=== PATIENT | female | born 1940 | race Caucasian/White ===

== ENCOUNTER → 2017-01-26 | Outpatient (CLI) | payer MEDICARE, OTHER ==
[~2017-01-26] MED LIST: ACIPHEX20 MG PO; ADVAIR IH; CELEXA40 MG PO; COUMADIN5 MG PO; CRESTOR20 MG PO; DEXILANT60 MG PO; GABAPENTIN TAB600 MG PO; GLUCOSAMINE/CHONDROI PO; LOVENOX60 MG/0.6 SC; NATURAL E400 IU PO; NEURONTIN600 MG/TAB PO; NEUROPATHY MED; OMEGA 31000 MG PO; RESTASIS0.05% OU; RT ADVAIR 228 DISKUS IH; RT SPIRIVA18 MCG IH; SALAGEN 5MG TAB5 MG PO; SPIRIVA18 MCG IH; VENTOLIN0.09 MG IH; VITAMIN D 400400 IU PO; VITAMIN E1000 U/CAP PO; XANAX 0.5MG0.5 MG PO; XANAX0.25 MG PO; XANAX0.5 MG PO; ZETIA 10MG TAB10 MG PO
== END ==
LOC: MC.RAD 13:59
DX: Z12.31 Encounter for screening mammogram for malignant neoplasm of breast (principal)

== ENCOUNTER 2017-04-27 15:41 | Inpatient (IN) | payer MEDICARE, OTHER ==
[~2017-04-27] VITALS: Ht 160 cm; Wt 59.0 kg
[2017-05-11 16:58] LABS: HIV 1/2 Antibodies Non-Reactive; HIV-1p24 Antigen Non-Reactive
[2017-05-26] VITALS (11 sets, daily range): BP systolic 109–159; BP diastolic 42–83; PULSE 75–98; TEMP 97.8–98.9
[2017-05-26] MEDS ORDERED: EPA FISH OIL1 SGL PO (01:35)
[2017-05-26] MEDS ORDERED: OSCAL 500 TAB500 MG PO (01:36)
[2017-05-26] MEDS ORDERED: NATURAL E400 IU PO (01:37)
[2017-05-26] MEDS ORDERED: WELLBUTRIN 75MG75 MG PO (01:39)
[2017-05-26] MEDS ORDERED: FLEXERIL 1010 MG/TAB PO (02:03)
[2017-05-26] MEDS ORDERED: DULERA1 AR1 IH (05:29)
[2017-05-27 00:53] VITALS: BP 104/44; PULSE 79; TEMP 97.5
[2017-05-27 04:00] VITALS: BP 115/45; PULSE 80; TEMP 97
[2017-05-27 06:31] LABS: HEMATOCRIT 30.9 % (37.0-47.0); HEMOGLOBIN 9.4 g/dl (12.5-16.0)
[2017-05-27 07:59] VITALS: BP 100/48; PULSE 72; TEMP 97.6
[2017-05-27 12:09] VITALS: BP 115/58; PULSE 83; TEMP 96.8
[2017-05-27 16:00] VITALS: BP 140/83; PULSE 77; TEMP 98
[2017-05-27 20:00] VITALS: BP 101/43; PULSE 81; TEMP 99.2
[2017-05-28 04:00] VITALS: BP 108/47; PULSE 73; TEMP 98.5
[2017-05-28 07:29] LABS: HEMATOCRIT 28.6 % (37.0-47.0); HEMOGLOBIN 8.6 g/dl (12.5-16.0)
[2017-05-28 09:39] VITALS: BP 111/43; PULSE 81; TEMP 99.1
[2017-05-28 14:51] VITALS: BP 111/50; PULSE 86; TEMP 97.9
[2017-05-28 17:25] VITALS: BP 120/73; BP 720/73; PULSE 89; TEMP 100.1; TEMP 98.8
[2017-05-28 20:46] VITALS: BP 126/52; PULSE 86; TEMP 98.7
[2017-05-29 06:28] LABS: HEMATOCRIT 29.3 % (37.0-47.0); HEMOGLOBIN 8.9 g/dl (12.5-16.0)
[2017-05-29 09:52] VITALS: BP 116/48; PULSE 82; TEMP 99.1
[2017-05-29 11:39] VITALS: BP 116/48; PULSE 82; TEMP 99.1
== END 2017-05-29 13:30 | DRG 483 ==
LOC: SURG 05-26 05:06 → JCC 05-26 07:30 → SURG 05-29 13:30
PROVIDERS: Orthopaedic Surgery
PROC: 0RRJ00Z Replacement of Right Shoulder Joint with Reverse Ball and Socket Synthetic Substitute, Open Approach (ICD-10-PCS; principal; 2017-05-26 07:30)
DX: M19.011 Primary osteoarthritis, right shoulder (principal); Z87.891 Personal history of nicotine dependence
CPT/HCPCS: A4315; C1713; C1776; J0690; J1100; J2250; J2704; J2710; J3010; J3370; J7050; J7120

== ENCOUNTER 2017-05-13 10:45 | Outpatient (RCR) | payer MEDICARE, OTHER ==
[2017-05-26] MEDS ORDERED: EPA FISH OIL1 SGL PO (01:35)
[2017-05-26] MEDS ORDERED: OSCAL 500 TAB500 MG PO (01:36)
[2017-05-26] MEDS ORDERED: NATURAL E400 IU PO (01:37)
[2017-05-26] MEDS ORDERED: WELLBUTRIN 75MG75 MG PO (01:39)
[2017-05-26] MEDS ORDERED: FLEXERIL 1010 MG/TAB PO (02:03)
[2017-05-26] MEDS ORDERED: DULERA1 AR1 IH (05:29)
== END 2017-06-07 15:04 | disposition home or self-care (01) ==
LOC: MKS.ESL.PT 10:45
DX: M75.111 Incomplete rotator cuff tear or rupture of right shoulder, not specified as traumatic (principal); M19.011 Primary osteoarthritis, right shoulder; M62.511 Muscle wasting and atrophy, not elsewhere classified, right shoulder
CPT/HCPCS: G0283-GP; G8978-GP; G8979-GP

== ENCOUNTER → 2017-06-03 | Outpatient (CLI) | payer MEDICARE, OTHER ==
[~2017-06-03] MED LIST changes: +DULERA1 AR1 IH; +EPA FISH OIL1 SGL PO; +FLEXERIL 1010 MG/TAB PO; +OSCAL 500 TAB500 MG PO; +WELLBUTRIN 75MG75 MG PO
== END ==
LOC: COL.VAS 13:29
DX: I82.611 Acute embolism and thrombosis of superficial veins of right upper extremity (principal); R60.0 Localized edema; Z96.611 Presence of right artificial shoulder joint

== ENCOUNTER → 2017-06-15 | Outpatient (CLI) | payer MEDICARE, OTHER | LOC: COL.RAD 14:17 | DX: M79.604 Pain in right leg (principal) ==

== ENCOUNTER → 2017-09-14 | Outpatient (RCR) | payer MEDICARE, OTHER | END | disposition home or self-care (01) | LOC: MKS.ESL.PT | DX: Z47.1 Aftercare following joint replacement surgery (principal); Z96.611 Presence of right artificial shoulder joint | CPT/HCPCS: G8978-GP; G8979-GP ==

== ENCOUNTER 2017-11-03 10:45 | Outpatient (RCR) | payer MEDICARE, OTHER | END 2017-12-18 | disposition home or self-care (01) | LOC: MKS.ESL.PT | DX: Z47.1 Aftercare following joint replacement surgery (principal); Z96.611 Presence of right artificial shoulder joint | CPT/HCPCS: G8978-GP; G8979-GP ==

== ENCOUNTER 2018-07-31 13:34 | Inpatient (IN) | payer MEDICARE, OTHER ==
[~2018-07-31] VITALS: Ht 154.9 cm; Wt 59.1 kg
[2018-12-13] VITALS (11 sets, daily range): BP systolic 94–159; BP diastolic 42–70; PULSE 60–80; TEMP 97.8–98.2
[2018-12-13] MEDS ORDERED: CRANBERRY FRUI425 MG PO (03:29)
[2018-12-13] MEDS ORDERED: OMNICEF 300MG300 MG PO (03:29)
[2018-12-13] MEDS ORDERED: FERRO-TIME325 MG PO (03:30)
[2018-12-13] MEDS ORDERED: FLORANEX GRANULE5 MG PO (03:31)
[2018-12-13] MEDS ORDERED: FOLIC ACID 40400 MCG PO (03:31)
[2018-12-13] MEDS ORDERED: NEURONTIN300 MG/CAP PO (03:32)
[2018-12-13] MEDS ORDERED: MULTIPLE VITAMI1 CAP PO (03:32)
[2018-12-13] MEDS ORDERED: NORCO 325 MG-7.1 TAB PO (03:33)
[2018-12-13] MEDS ORDERED: NYSTATIN CREAM15 GM TP (03:33)
[2018-12-13] MEDS ORDERED: ONE DAILY MULTI1 TA1 (03:34)
[2018-12-13] MEDS ORDERED: NYSTATIN OR100 MU/ML PO (03:34)
[2018-12-13] MEDS ORDERED: ROXICODONE 55 MG/TAB PO (03:35)
[2018-12-13] MEDS ORDERED: PREMARIN VAG42.5 GM VG (03:36)
[2018-12-13] MEDS ORDERED: ZOLOFT 100MG100 MG PO (03:37)
[2018-12-13] MEDS ORDERED: VITAMIN D 1001000 IU (03:37)
[2018-12-13] MEDS ORDERED: VITAMINC1000TA (03:37)
[2018-12-13] MEDS ORDERED: PROAIR HFA0.09 MG/AC IH (06:11)
[2018-12-13] MEDS ORDERED: CRANBERRY500 M3 PO (06:15)
--- NOTE | 2018-12-13 11:46 | NUR ---
PAUL met with the patient and patient's daughter, Nona, to discuss discharge plan. The patient lives alone in [place]. Her daughter states that she lives here in town also. The patient reports independence with ADLs and she has a cane and walker. The patient's PCP is Dr. Alessandro Lion and she receives her medications at [facility]. The patient's daughter reports no difficulties obtaining her meds. The patient's advanced directives are in EMR. The patient plans to return home and receive outpatient therapy at [facility] upon discharge. No additional needs at this time.
--- NOTE | 2018-12-13 20:00 | NUR ---
Report received. Assumed care for shift mechanic. Assessment complete. VS stable. Denies pain-states she is still numb to left extremity. O2@3l/NC. D5 1/2 NS @125ml/hr to right forearm IV. Infusing without difficulty. States she is a little nauseas-working on dinner tray now. Matute draining clear yellow urine. Plan of care discussed for trying to sit on side of bed/ambulate this shift. Verbalizes understanding. Aquacell to left shoulder with small amount of old drainage. Abduction sling on but adjusted to ensure proper alignment. States she feels exhausted-requesting help with CPAP-applied and adjusted. Fresh ice pack applied to shoulder with pillow support. Call light within reach. Bed in low position/wheels locked. Will continue to monitor.
[2018-12-14] VITALS: BP 107/51; PULSE 68; TEMP 97.9
--- NOTE | 2018-12-14 00:37 | NUR ---
Called to room due to pain. Rating 8/10 to left shoulder. Stitzer one tab given per dr order. Fresh ice pack applied and repositioned using pillow support. Will monitor.
[2018-12-14 04:00] VITALS: BP 78/36; PULSE 46; TEMP 98
[2018-12-14 04:40] VITALS: BP 98/52
--- NOTE | 2018-12-14 04:40 | NUR ---
Report received of low blood pressure. Rechecked at this time and WNL-runs low normally. Denies needs as this time. Will Monitor.
--- NOTE | 2018-12-14 05:43 | NUR ---
Up to side of bed. C/O pain rated 10/10 to left shoulder. Have had issues with keeping abduction sling on correctly this shift. Readjusted and pain already down to 6/10. Stood at side of bed for aprroximately two minutes. C/O dizziness-feelilng faint. Sat back down on bed for a few minutes. Positioned with abduction sling-pillow and fresh ice pack. States pain is already better. [place] given per dr order. WIll monitor.
--- NOTE | 2018-12-14 07:37 | NUR ---
Report from Alyce KNOWLES.
[2018-12-14] MEDS ORDERED: NORCO 325 MG-7.1 TAB PO (07:48)
[2018-12-14] MEDS ORDERED: ASPI325T6 PO (07:48)
[2018-12-14] MEDS ORDERED: ROXICODONE 55 MG/TAB PO (07:49)
[2018-12-14 08:04] VITALS: BP 81/35; PULSE 69; TEMP 97.4
--- NOTE | 2018-12-14 08:22 | NUR ---
PT UP IN BED EATING BREAKFAST. DENIES NEEDS OR PAIN. DRESSING TO LEFT SHOULDER CDI WITH AQUACEL OVER INCISION. LEFT ARM IN IMMOBILIZER BRACE.
[2018-12-14 10:17] VITALS: BP 90/35
--- NOTE | 2018-12-14 10:23 | NUR ---
First visit from the front office manager. No needs right now.
[2018-12-14 11:46] VITALS: BP 108/40; PULSE 77; TEMP 97.6
--- NOTE | 2018-12-14 11:58 | NUR ---
DISCONTINUED DE LA ROSA CATHETER AND INT. PT TOLERATED BOTH PROCEEDURES WELL.
--- NOTE | 2018-12-14 13:52 | NUR ---
discharge instructions provided to patient and family, questions answered. Patient taken by wheel chair to front.
== END 2018-12-14 13:53 | disposition home or self-care (01) | DRG 483 ==
LOC: JCC 09-28 07:30
PROVIDERS: ADMIT Orthopaedic Surgery
PROC: 0RRK00Z Replacement of Left Shoulder Joint with Reverse Ball and Socket Synthetic Substitute, Open Approach (ICD-10-PCS; principal; 2018-12-13 07:30)
DX: M19.212 Secondary osteoarthritis, left shoulder (principal); F41.9 Anxiety disorder, unspecified; Z86.718 Personal history of other venous thrombosis and embolism; J44.9 Chronic obstructive pulmonary disease, unspecified; E78.00 Pure hypercholesterolemia, unspecified; Z87.891 Personal history of nicotine dependence
CPT/HCPCS: A4314; A4619; A9284; C1713; C1776; J0330; J0690; J1100; J1885; J2250; J2370; J2405; J2704; J3010; J3370; J7120

== ENCOUNTER 2018-09-20 13:27 | Outpatient (RCR) | payer MEDICARE, OTHER | END 2018-11-08 10:02 | disposition home or self-care (01) | LOC: MKS.ESL.PT 13:27 | DX: M19.012 Primary osteoarthritis, left shoulder (principal); Z96.612 Presence of left artificial shoulder joint ==

== ENCOUNTER → 2018-11-15 | Outpatient (CLI) | payer MEDICARE, OTHER | LOC: COL.RAD 07:31 | DX: Z01.812 Encounter for preprocedural laboratory examination (principal); K57.30 Diverticulosis of large intestine without perforation or abscess without bleeding; N28.1 Cyst of kidney, acquired; N13.5 Crossing vessel and stricture of ureter without hydronephrosis; M46.96 Unspecified inflammatory spondylopathy, lumbar region; M51.36 Other intervertebral disc degeneration, lumbar region; M16.0 Bilateral primary osteoarthritis of hip; K44.9 Diaphragmatic hernia without obstruction or gangrene; Z98.890 Other specified postprocedural states; Z90.710 Acquired absence of both cervix and uterus | CPT/HCPCS: Q9967 ==

== ENCOUNTER → 2018-12-06 | Outpatient (CLI) | payer MEDICARE, OTHER | LOC: COL.RAD 08:10 | DX: R13.10 Dysphagia, unspecified (principal); Z87.09 Personal history of other diseases of the respiratory system ==

== ENCOUNTER → 2018-12-06 | Outpatient (CLI) | payer MEDICARE, OTHER ==
[2018-12-06 13:22] LABS: HIV 1/2 Antibodies Non-Reactive; HIV-1p24 Antigen Non-Reactive
== END ==
LOC: COL.LAB 11:51
PROVIDERS: Orthopaedic Surgery
DX: Z01.812 Encounter for preprocedural laboratory examination (principal)

== ENCOUNTER → 2019-01-17 | Outpatient (CLI) | payer MEDICARE, OTHER ==
[~2019-01-17] MED LIST changes: +ASPI325T6 PO; +CRANBERRY FRUI425 MG PO; +CRANBERRY500 M3 PO; +FERRO-TIME325 MG PO; +FLORANEX GRANULE5 MG PO; +FOLIC ACID 40400 MCG PO; +MULTIPLE VITAMI1 CAP PO; +NEURONTIN300 MG/CAP PO; +NORCO 325 MG-7.1 TAB PO; +NYSTATIN CREAM15 GM TP; +NYSTATIN OR100 MU/ML PO; +OMNICEF 300MG300 MG PO; +ONE DAILY MULTI1 TA1; +PREMARIN VAG42.5 GM VG; +PROAIR HFA0.09 MG/AC IH; +ROXICODONE 55 MG/TAB PO; +VITAMIN D 1001000 IU; +VITAMINC1000TA; +ZOLOFT 100MG100 MG PO
== END ==
LOC: COL.RAD 12:51
DX: I82.612 Acute embolism and thrombosis of superficial veins of left upper extremity (principal)

== ENCOUNTER 2019-01-23 10:30 | Outpatient (RCR) | payer MEDICARE, OTHER | END 2019-02-01 13:38 | disposition home or self-care (01) | LOC: WSST 10:30 | DX: R13.10 Dysphagia, unspecified (principal) ==

== ENCOUNTER 2019-03-16 10:00 | Outpatient (RCR) | payer MEDICARE, OTHER | END 2019-03-18 | disposition still patient (30) | LOC: MKS.ESL.PT | DX: M25.512 Pain in left shoulder (principal); Z96.612 Presence of left artificial shoulder joint ==

== ENCOUNTER → 2019-05-03 | Outpatient (CLI) | payer MEDICARE, OTHER | LOC: COL.RAD 05-01 09:30 | DX: K22.8 Other specified diseases of esophagus (principal); N28.1 Cyst of kidney, acquired; N13.5 Crossing vessel and stricture of ureter without hydronephrosis ==

== ENCOUNTER → 2019-05-10 | Outpatient (CLI) | payer MEDICARE, OTHER | LOC: MC.RAD 09:21 | DX: Z12.31 Encounter for screening mammogram for malignant neoplasm of breast (principal) ==

== ENCOUNTER 2019-05-16 10:27 | Inpatient (IN) | payer MEDICARE, OTHER ==
[~2019-05-16] VITALS: Ht 154.9 cm; Wt 56.8 kg
[2019-07-23] VITALS (12 sets, daily range): BP systolic 74–143; BP diastolic 41–71; PULSE 58–81; TEMP 97.3–98.6
--- NOTE | 2019-07-23 10:29 | NUR ---
PT TO ROOM 327 PER BED WITH REPORT FROM SHAISTA KNOWLES PACU @1000. PT IS DROWSEY BUT AROUSES TO VERBAL. PT IS A/O X3, LUNGS DIMINISHED BASELINE. BOWEL SOUNDS PRESENT. DRESSING TO RIGHT HIP CDI WITH AQUACEL OVER INCISION, TEDS,AND SCDS BILATERALLY. PEDAL PULSES 2. PT DENIES PAIN. VSS. IV TO PUMP PER ORDERS.
--- NOTE | 2019-07-23 14:51 | NUR ---
Organ Fixer met with the patient to discuss discharge planning. Patient lives alone in [place] and sees Dr. Lion for primary care. Patient has a daughter, Nona (ph#[phone]) that also lives in [place]. Patient obtains her medications from [facility]. Patient has a CPAP, cane, and walker at home and reports independence with ADLS. Patient has Advance Directives in the EMR that designate her daughter, Nona. Patient reports she plans to stay with Nona upon discharge and already has outpatient therapy set up at [facility] Patient states she has stayed at [facility] before and felt trapped there. SW to continue to follow and will review therapy notes to obtain recommendations for safe discharge.
--- NOTE | 2019-07-23 22:00 | NUR ---
Pt. laying in bed at this time. Pt. is A&OX3, assessment complete. INT to lt. forearm patent, IV to rt. hand patent, IV fluids infusing per orders. Dressing to rt. hip CDI. Pt. reported pain at a 5 on pain scale, gave pain meds per orders. Pt. stood at bedside with 2 assist. Pt. did not feel able to bear weight on rt. leg at this time. Pt. did not attempt ambulating at this time. Pt. repositioned in bed for comfort. Pt. denies further needs, call light within reach.
[2019-07-24 03:32] VITALS: BP 100/37; PULSE 73; TEMP 97.5
[2019-07-24 07:16] LABS: HEMATOCRIT 31.4 % (37.0-47.0); HEMOGLOBIN 9.4 g/dl (12.5-16.0)
[2019-07-24 07:26] VITALS: BP 94/36; PULSE 70; TEMP 97.9
--- NOTE | 2019-07-24 09:06 | NUR ---
PT DROWSEY THIS AM. EASILY AROUSES TO VERBAL. PT HAS BEEN HYPOTENSIVE THIS AM 80-90/30'S FREDERICK ALFORD APRN NOTIFIED. OTHER VSS. PAIN WELL CONTROLLED THIS AM WITH PO MEDS. PT DID STRUGGLE LAST NOC WITH PAIN. PT EATING AND DRINKING WITH NO N/V. PT'S BASELINE PARKINSONS MAKES SWALLOWING DIFFICULT AT TIMES PER PT REPORT. SPEECH THERAPY CONTACTED. OT TO NOEL FOR HELP WITH PARKINSONS IN ADDITION TO [facility]INT [facility].
--- NOTE | 2019-07-24 09:36 | NUR ---
LEFT VOICE MAIL AND TEXT FOR FREDERICK RE: HYPOTENSION.
[2019-07-24 11:12] VITALS: BP 93/33; PULSE 73; TEMP 98.4
[2019-07-24 11:46] VITALS: BP 89/37
--- NOTE | 2019-07-24 11:57 | NUR ---
AFTER INITIAL BOLUS COMPLETE NO CHANGE IN BP. CONSULTED DR. ESPINOZA/CJ GOMES APRN FOR MEDICAL MANGEMENT.
[2019-07-24 16:30] VITALS: BP 101/40; PULSE 77; TEMP 98.9
[2019-07-24 16:32] LABS: BASO % 0.2 % (0.0-2.0); EOS % 0.2 % (0-4.0); GRAN % 83.9 % (42.2-75.2); HEMOGLOBIN 10.1 g/dl (12.5-16.0); LYMPH # 0.7 (1.2-3.4); LYMPH % 6.8 % (20.0-51.0); MEAN CELL VOLUME 96 fl (80.0-100.0); MEAN CORPUSCULAR HEMOGLOBIN 28 pg (27.0-31.0); MEAN CORPUSCULAR HGB CONC 30 g/dl (33.0-37.0); MEAN PLATELET VOLUME 10.9 fl (7.4-10.4); MONO # 0.8 (0.1-0.6); MONO % 8.7 % (1.7-9.3); PLATELET COUNT 132 K/mm3 (130-400); RED BLOOD COUNT 3.56 M/mm3 (4.10-5.30); REDCELL DISTRIBUTION WIDTH-CV 13.6 % (11.5-14.5)
[2019-07-24 16:46] LABS: CREATININE, serum 0.64 (0.52-1.25); POTASSIUM 3.9 mmol/L (3.4-5.0)
--- NOTE | 2019-07-24 17:54 | NUR ---
PT UNABLE TO AMBULATE FURTHER THAN 3 STEPS WITH THERAPY TODAY. RECCOMEND LEAVE DE LA ROSA OVER NIGHT AND REMOVE IN AM.
[2019-07-24 18:02] LABS: COLLECTION METHOD CATHETER
[2019-07-24 18:11] LABS: PH 6 (5-8); SQUAMOUS EPITHELIAL None Seen /hpf; URINE APPEARANCE Clear; URINE BACTERIA None Seen /hpf; URINE BILIRUBIN Negative (NEGATIVE); URINE BLOOD Negative (NEGATIVE); URINE COLOR Straw; URINE GLUCOSE Negative (NEGATIVE); URINE KETONE Negative (NEGATIVE); URINE LEUKOCYTE ESTERASE Negative (NEGATIVE); URINE NITRATE Negative (NEGATIVE); URINE PROTEIN(semi-quant) Negative (NEGATIVE); URINE RBC 0-2 /hpf; URINE UROBILINOGEN Negative (NEGATIVE)
--- NOTE | 2019-07-24 19:09 | NUR ---
REPORT TO ELLIOT KNOWLES.
--- NOTE | 2019-07-24 19:30 | NUR ---
Pt. sitting up in chair at this time. Pt. is A&OX3, assessment complete. INT to rt. hand patent. IV to lt forearm patent, iv fluids infusing per orders. dressing to rt hip CDI. Pt. reports mild pain at this time. Pt. would like a pain pill before bed, will give per orders. Pt. denies further needs, call light within reach.
[2019-07-24 20:15] VITALS: BP 116/48; PULSE 92; TEMP 97.8
[2019-07-25 00:30] VITALS: BP 95/41; PULSE 88; TEMP 99.1
[2019-07-25 04:58] VITALS: BP 136/60; PULSE 92; TEMP 98
[2019-07-25 06:59] LABS: CALCIUM 8.1 mg/dL (8.4-10.2); CREATININE, serum 0.49 (0.52-1.25); POTASSIUM 3.8 mmol/L (3.4-5.0)
[2019-07-25 07:07] LABS: BASO % 0.1 % (0.0-2.0); GRAN # 9.6 (1.4-6.5); GRAN % 89.8 % (42.2-75.2); LYMPH # 0.4 (1.2-3.4); LYMPH % 3.7 % (20.0-51.0); MEAN CELL VOLUME 95 fl (80.0-100.0); MEAN CORPUSCULAR HGB CONC 31 g/dl (33.0-37.0); MEAN PLATELET VOLUME 11.4 fl (7.4-10.4); MONO # 0.6 (0.1-0.6); PLATELET COUNT 132 K/mm3 (130-400); RED BLOOD COUNT 3.23 M/mm3 (4.10-5.30); REDCELL DISTRIBUTION WIDTH-CV 13.7 % (11.5-14.5); RETIC # 0.02 M/mm3 (0.02-0.16); RETIC % 0.7 % (0.5-3.52)
[2019-07-25 07:11] LABS: HEMATOCRIT 30.8 % (37.0-47.0); HEMOGLOBIN 9.4 g/dl (12.5-16.0); MEAN CORPUSCULAR HEMOGLOBIN 29 pg (27.0-31.0)
[2019-07-25 07:50] LABS: TOTAL IRON BINDING CAPACITY 258 ug/dL (265-497)
[2019-07-25 07:55] LABS: IRON,SERUM < 10 ug/dL (35-150)
--- NOTE | 2019-07-25 08:00 | NUR ---
Patient resting in bedside recliner eating breakfast at this time. Patient is alert and oriented, answers questions appropriately. Patient denies pain at this time, call light within reach.
[2019-07-25 08:29] VITALS: BP 100/60; PULSE 91; TEMP 97.8
[2019-07-25 12:43] VITALS: BP 117/43; PULSE 92; TEMP 97.7
--- NOTE | 2019-07-25 17:11 | NUR ---
Head Bone Grinder met with patient to review discharge plan as patient not recommended to discharge home. Patient reports she is interested in [place] [facility]. SW discussed a second preference with patient and provided Medicare.gov list of SNFs. Patient expressed interest in [facility] and [facility]. SW presented patient choice form and patient advised first preference is [facility] and second preference is either [facility] or [facility]. Patient provided signature on form and SW placed in chart. SW spoke to Kamila, [facility] Director who is reviewing referral. SW contacted [facility] and [facility] then faxed referrals. SW contacted patient's daughter, Nona to provide update on discharge planning. SW to continue to follow to ensure safe discharge.
[2019-07-25 18:01] VITALS: BP 98/78; PULSE 48; TEMP 97.8
[2019-07-25 19:30] VITALS: BP 116/43; PULSE 99; TEMP 98.7
[2019-07-26 00:41] LABS: ARTERIAL BLD GAS O2 SATURATION 94.8 % (92-100); ARTERIAL BLD GAS TCO2 CT 20.9; ARTERIAL BLOOD GAS BASE EXCESS -2.7 (-2-2); ARTERIAL BLOOD GAS PCO2 28.8 mmHg (35-45); ARTERIAL BLOOD GAS PO2 63.9 mmHg (80-100); ARTERIAL BLOOD GAS pH 7.46 (7.35-7.45)
[2019-07-26 00:51] VITALS: BP 162/62; PULSE 120; TEMP 98.1
--- NOTE | 2019-07-26 02:25 | NUR ---
Patient had rough night. alert and oriented at start of shift. c/o pain, prn norco given. patient refused senokot, tylenol, and gabapentin, but took the rest of her scheduled medications without issue. called by CASTING WHEEL OPERATOR that patient was increasingly confused and had pulled out lee. attempted to calm patient and reorient and apply ludy and brief to patient. patient became very agitated and was grabbing/swinging at nursing staff. called to darvin ANAYA, as patient becoming increasing agitated. prn seroquel ordered, refused by patient. haldol refused by patients family who was called by wander ANAYA. Mitts applied and patient hit CASTING WHEEL OPERATOR in abd/chest. patients family then arrived at bedside and patient was calmed down almost immediately. vitals taken at this time revealed HR 120s and BP 160/62. darvin ANAYA notified. ABGs drawn, and patient started on 2 L O2 via NC. patient remained calm and CT completed. patient now resting comfortably in bed. family no longer at bedside. no further needs at this time. will continue to monitor.
[2019-07-26 07:22] LABS: BASO % 0.2 % (0.0-2.0); EOS % 0.1 % (0-4.0); LYMPH # 0.9 (1.2-3.4); LYMPH % 8.2 % (20.0-51.0); MEAN CELL VOLUME 93 fl (80.0-100.0); MEAN CORPUSCULAR HGB CONC 31 g/dl (33.0-37.0); MEAN PLATELET VOLUME 11.4 fl (7.4-10.4); PLATELET COUNT 166 K/mm3 (130-400); RED BLOOD COUNT 3.33 M/mm3 (4.10-5.30); REDCELL DISTRIBUTION WIDTH-CV 13.7 % (11.5-14.5)
[2019-07-26 07:23] LABS: HEMATOCRIT 31.1 % (37.0-47.0); HEMOGLOBIN 9.5 g/dl (12.5-16.0); MEAN CORPUSCULAR HEMOGLOBIN 29 pg (27.0-31.0)
[2019-07-26 07:51] VITALS: BP 127/45; PULSE 94; TEMP 98.6
--- NOTE | 2019-07-26 08:16 | NUR ---
PT REFUSED, COMBATIVE
--- NOTE | 2019-07-26 10:05 | NUR ---
PHYSICAL THERAPY CAME OUT ASKING FOR NURSING ASSISTANCE. PATIENT WAS SCREAMING, CUSSING AND HITTING STAFF. PATIENT VERY CONFUSED AND UNABLE TO CALM DOWN. PATIENT WAS TRYING TO GET OUT OF BEDSIDE CHAIR. GAVE PRN IM HALDOL. PATIENT 3 ASSIST BACK INTO BED.
[2019-07-26 11:22] VITALS: BP 127/60; PULSE 87; TEMP 98.6
--- NOTE | 2019-07-26 15:06 | NUR ---
Delinquency Counselor attended clinical rounds with the team. Patient is disoriented and stated to Hospitalist and Pharmacist that they are "devil worshippers". Overnight patient pulled out her lee and her IV. Patient will not discharge today. SW faxed updates to [email or web address]. SW to continue to follow.
[2019-07-26 15:59] VITALS: BP 152/63; PULSE 98; TEMP 98.4
[2019-07-26 19:54] VITALS: BP 135/54; PULSE 89; TEMP 98.3
[2019-07-26 22:49] VITALS: BP 140/54; PULSE 90; TEMP 98.2
--- NOTE | 2019-07-27 02:57 | NUR ---
patient doing well tonight. alert but not oriented. appears to be in a better mood and is more trusting of staff. slightly drowsy. patient refused all medications this evening. ambulated to bathroom with x1 assist several times. requested a bath, was assisted with bed bath with warm wipes by SHOWROOM CONSULTANT. did not eat very much dinner. no further needs at this time. will continue to monitor.
[2019-07-27 03:42] VITALS: BP 122/58; PULSE 89; TEMP 98.8
--- NOTE | 2019-07-27 07:23 | NUR ---
REPORT FROM MARNIE KNOWLES.
[2019-07-27 09:51] VITALS: BP 127/48; PULSE 95; TEMP 99.1
[2019-07-27 12:17] VITALS: BP 115/57; PULSE 105; TEMP 98.5
--- NOTE | 2019-07-27 15:06 | NUR ---
Industrial Truck Mechanic spoke with Kamila [facility] Director who advised patient may be a better fit for SNF upon discharge. SW attended clinical rounds with the team and patient is more oriented today and answered questions from Hospitalist. SW faxed updates to [facility]. PAUL spoke with [facility] who advised they could accept referral pending any behavioral changes. PAUL spoke with Dieter earlier in the day and Dieter stated they could follow referral. SW contacted patient's daughter, Nona to provide update. SW to continue to follow.
--- NOTE | 2019-07-27 15:46 | NUR ---
Marketing Coordinator received a message from Dieter kiran [facility] that after reviewing most recent updates, they would not be able to accept referral at this time.
[2019-07-27 16:23] VITALS: BP 112/57; PULSE 98; TEMP 98.3
--- NOTE | 2019-07-27 18:01 | NUR ---
PT UP TO RECLINER AND BACK TO BED WITH SBAX1. VOIDING. DRESSSING TO RIGHT HIP CDI. PAIN CONTROLLED WITH TYLENOL TODAY. PT IS A/O X3 WITH NO DELERIUM OBSERVED OR REPORTED.
--- NOTE | 2019-07-27 18:51 | NUR ---
REPORT TO AISHA KNOWLES.
[2019-07-27 19:22] VITALS: BP 134/44; PULSE 91; TEMP 98.3
[2019-07-28 00:27] VITALS: BP 128/64; PULSE 78; TEMP 98.6
[2019-07-28 04:14] VITALS: BP 133/49; PULSE 76; TEMP 97.8
--- NOTE | 2019-07-28 04:19 | NUR ---
Patient has rested well this shift. Denies pain. Scheduled Tylenol administered per orders. Patient requires one assist from staff to ambulate to the bathroom. No confusion noted this shift. Patient pleasant with staff. Aquacel to right hip CDI. Denies any further needs. Will continue to monitor.
[2019-07-28] MEDS ORDERED: XARELTO10 MG PO (07:30)
[2019-07-28] MEDS ORDERED: FERROUS SU325 MG/TAB PO (07:30)
[2019-07-28] MEDS ORDERED: SENNA-S 50 MG-81 TAB PO (07:31)
[2019-07-28] MEDS ORDERED: TYLENOL 325MG325 MG PO (07:31)
[2019-07-28] MEDS ORDERED: DULCOLAX S10 MG/SUPP RC (07:31)
[2019-07-28] MEDS ORDERED: GOOD NEIGH1200 MG/15 PO (07:32)
[2019-07-28 08:09] VITALS: BP 128/43; PULSE 98; TEMP 97.9
[2019-07-28 08:12] LABS: BASO % 0.6 % (0.0-2.0); EOS # 0.2 (0.0-0.7); EOS % 2.6 % (0-4.0); GRAN # 4.6 (1.4-6.5); GRAN % 71.4 % (42.2-75.2); HEMOGLOBIN 10.6 g/dl (12.5-16.0); LYMPH # 1.1 (1.2-3.4); LYMPH % 16.9 % (20.0-51.0); MEAN CELL VOLUME 93 fl (80.0-100.0); MEAN CORPUSCULAR HEMOGLOBIN 29 pg (27.0-31.0); MEAN CORPUSCULAR HGB CONC 31 g/dl (33.0-37.0); MEAN PLATELET VOLUME 10.5 fl (7.4-10.4); MONO # 0.5 (0.1-0.6); MONO % 7.9 % (1.7-9.3); PLATELET COUNT 224 K/mm3 (130-400); RED BLOOD COUNT 3.68 M/mm3 (4.10-5.30)
[2019-07-28 08:19] LABS: CREATININE, serum 0.59 (0.52-1.25); MAGNESIUM 2.3 mg/dL (1.6-2.3); POTASSIUM 3.7 mmol/L (3.4-5.0)
[2019-07-28 08:22] LABS: HEMATOCRIT 34.2 % (37.0-47.0)
--- NOTE | 2019-07-28 08:30 | NUR ---
Patient alert and oriented, answers questions appropriately. See assessment. RLE with dressing CDI, no drainage noted. Limited ROM to RLE. Post op exercises reviewed. No c/o at this time.
[2019-07-28 12:55] VITALS: BP 114/49; PULSE 81; TEMP 97.4
[2019-07-28 13:33] VITALS: BP 114/49; PULSE 81; TEMP 97.4
--- NOTE | 2019-07-28 14:35 | NUR ---
Discharge to [facility] at 01:30 pm. SW sent Discharge to [phone]. No additional concerns.
--- NOTE | 2019-07-28 15:19 | NUR ---
Patient transferred to [facility] via wheelchair with transporation staff at 1400. Report called to BENSON Garcia.
== END 2019-07-28 14:00 | DRG 470 ==
LOC: JCC 07-23 05:04
PROVIDERS: Internal Medicine; ADMIT Orthopaedic Surgery
PROC: 0SR902Z Replacement of Right Hip Joint with Metal on Polyethylene Synthetic Substitute, Open Approach (ICD-10-PCS; principal; 2019-07-23 07:30)
DX: M16.11 Unilateral primary osteoarthritis, right hip (principal); F05 Delirium due to known physiological condition; F41.9 Anxiety disorder, unspecified; E78.00 Pure hypercholesterolemia, unspecified; F32.9 Major depressive disorder, single episode, unspecified; J43.9 Emphysema, unspecified; K21.9 Gastro-esophageal reflux disease without esophagitis; G89.29 Other chronic pain; E78.5 Hyperlipidemia, unspecified; K58.9 Irritable bowel syndrome, unspecified; G20 Parkinson's disease; M35.00 Sjogren syndrome, unspecified; G43.909 Migraine, unspecified, not intractable, without status migrainosus; D64.9 Anemia, unspecified; Z88.8 Allergy status to other drugs, medicaments and biological substances; Z88.1 Allergy status to other antibiotic agents; Z86.718 Personal history of other venous thrombosis and embolism; Z87.11 Personal history of peptic ulcer disease; Z90.721 Acquired absence of ovaries, unilateral; Z98.42 Cataract extraction status, left eye; Z98.41 Cataract extraction status, right eye; Z90.710 Acquired absence of both cervix and uterus; Z87.891 Personal history of nicotine dependence; Z86.711 Personal history of pulmonary embolism; I95.81 Postprocedural hypotension
CPT/HCPCS: 99223; 99231-AI; 99232-AI; A4314; A9284; C1713; C1776; J0690; J1630; J1885; J2250; J2270; J2405; J2704; J3010; J7030; J7120; J7512

== ENCOUNTER 2019-05-18 09:00 | Outpatient (RCR) | payer MEDICARE, OTHER | END 2019-06-17 | disposition home or self-care (01) | LOC: MKS.ESL.PT | DX: Z96.612 Presence of left artificial shoulder joint (principal) ==

== ENCOUNTER → 2019-07-18 | Outpatient (CLI) | payer MEDICARE, OTHER ==
[2019-07-18 13:31] LABS: HIV 1/2 Antibodies Non-Reactive; HIV-1p24 Antigen Non-Reactive
== END ==
LOC: COL.LAB 10:10
PROVIDERS: Orthopaedic Surgery
DX: Z01.812 Encounter for preprocedural laboratory examination (principal); M16.11 Unilateral primary osteoarthritis, right hip

== ENCOUNTER 2019-07-27 13:30 | Outpatient (RCR) | payer MEDICARE, OTHER ==
[2019-07-28] MEDS ORDERED: FERROUS SU325 MG/TAB PO (07:30)
[2019-07-28] MEDS ORDERED: XARELTO10 MG PO (07:30)
[2019-07-28] MEDS ORDERED: SENNA-S 50 MG-81 TAB PO (07:31)
[2019-07-28] MEDS ORDERED: DULCOLAX S10 MG/SUPP RC (07:31)
[2019-07-28] MEDS ORDERED: TYLENOL 325MG325 MG PO (07:31)
[2019-07-28] MEDS ORDERED: GOOD NEIGH1200 MG/15 PO (07:32)
== END 2019-10-16 | disposition home or self-care (01) ==
LOC: MKS.ESL.PT
DX: M16.11 Unilateral primary osteoarthritis, right hip (principal); Z96.641 Presence of right artificial hip joint

== ENCOUNTER 2019-09-10 10:30 | Outpatient (RCR) | payer MEDICARE, OTHER ==
[~2019-09-10 10:30] MED LIST changes: +DULCOLAX S10 MG/SUPP RC; +FERROUS SU325 MG/TAB PO; +GOOD NEIGH1200 MG/15 PO; +SENNA-S 50 MG-81 TAB PO; +TYLENOL 325MG325 MG PO; +XARELTO10 MG PO
== END 2019-11-14 | disposition still patient (30) ==
LOC: MKS.ESL.PT
DX: M16.11 Unilateral primary osteoarthritis, right hip (principal); Z96.641 Presence of right artificial hip joint

== ENCOUNTER → 2019-12-06 | Outpatient (CLI) | payer MEDICARE, OTHER | LOC: COL.RAD 10:06 | DX: N30.20 Other chronic cystitis without hematuria (principal); N28.1 Cyst of kidney, acquired ==

== ENCOUNTER → 2020-05-12 | Outpatient (CLI) | payer MEDICARE, OTHER | LOC: MC.RAD 09:32 | DX: Z12.31 Encounter for screening mammogram for malignant neoplasm of breast (principal) ==

== ENCOUNTER 2020-11-26 08:15 | Outpatient (RCR) | payer MEDICARE, OTHER | END 2020-11-30 | disposition home or self-care (01) | LOC: WSST | DX: R41.841 Cognitive communication deficit (principal); F09 Unspecified mental disorder due to known physiological condition; G20 Parkinson's disease ==

== ENCOUNTER 2021-01-21 10:00 | Outpatient (RCR) | payer MEDICARE, OTHER ==
[2021-02-13] MEDS ORDERED: LOTEMAX 5 ML 5 M5 ML OU (06:31)
[2021-02-13] MEDS ORDERED: SYSTANE BALANCE10 M1 OP (06:32)
[2021-02-13] MEDS ORDERED: REFRESH CELLUVI1 SOL OP (06:33)
[2021-02-13] MEDS ORDERED: SANCTURA20 MG PO (06:34)
[2021-02-13] MEDS ORDERED: ARICEPT10 MG PO (06:35)
[2021-02-13] MEDS ORDERED: SINEMET 25/101 UDTAB PO ×2 (06:36→13:24)
[2021-02-13] MEDS ORDERED: CRESTOR20 MG PO (06:37)
[2021-02-13] MEDS ORDERED: NEXIUM 40MG40 MG PO (06:40)
[2021-02-13] MEDS ORDERED: DULERA1 AR1 IH (06:42)
[2021-02-13] MEDS ORDERED: VITAMINC1000TA PO (06:43)
[2021-02-13] MEDS ORDERED: MASON NATURAL2000 IU PO (06:45)
[2021-02-13] MEDS ORDERED: NATURAL E400 IU PO (06:46)
[2021-02-13] MEDS ORDERED: TYLENOL 8 HR PO (06:48)
[2021-02-13] MEDS ORDERED: CRANBERRY FRUI425 MG PO (06:49)
[2021-02-13] MEDS ORDERED: NYSTATIN OR100 MU/ML PO (06:50)
[2021-02-13] MEDS ORDERED: MAGIC MOUTH PO (06:51)
[2021-02-13] MEDS ORDERED: NYSTATIN100000 U/1 TOP (06:51)
[2021-02-13] MEDS ORDERED: PREMARIN VAG42.5 GM VG (06:53)
[2021-02-16] MEDS ORDERED: ASPIRIN 81M81 MG/TA2 PO (10:25)
== END 2021-03-03 | disposition home or self-care (01) ==
LOC: WSST
DX: R41.841 Cognitive communication deficit (principal); G20 Parkinson's disease

== ENCOUNTER 2021-02-13 02:02 | Inpatient (IN) | payer MEDICARE, OTHER ==
[~2021-02-13] VITALS: Ht 154.9 cm; Wt 52.3 kg
[2021-02-13 03:01] LABS: HEMATOCRIT 43.6 % (37.0-47.0); HEMOGLOBIN 13.7 g/dl (12.5-16.0); MEAN CELL VOLUME 90 fl (80.0-100.0); MEAN CORPUSCULAR HEMOGLOBIN 28 pg (27.0-31.0); MEAN CORPUSCULAR HGB CONC 31 g/dl (33.0-37.0); MEAN PLATELET VOLUME 11.4 fl (7.4-10.4); PLATELET COUNT 222 K/mm3 (130-400); RED BLOOD COUNT 4.85 M/mm3 (4.10-5.30); REDCELL DISTRIBUTION WIDTH-CV 14.1 % (11.5-14.5)
[2021-02-13 03:15] LABS: ALBUMIN 4.3 gm/dL (3.5-5.0); BILIRUBIN,TOTAL 1.1 mg/dL (0.0-1.0); C-REACTIVE PROTEIN 5.5 mg/dL (0.0-0.9); CALCIUM 9.8 mg/dL (8.4-10.2); CREATININE, serum 3.49 (0.52-1.25); POTASSIUM 3.4 mmol/L (3.4-5.0); TOTAL PROTEIN 7.6 gm/dL (6.4-8.2)
[2021-02-13 03:17] LABS: BASOPHIL 1 % (0-2); HYPOCHROMIA 2+; LYMPHOCYTE 4 % (20.0-51.0); NEUTROPHILS 92 % (42.0-75.2); PLATELET ESTIMATE NORMAL (NORMAL); POIKILOCYTOSIS 1+
[2021-02-13 04:33] LABS: COLLECTION METHOD CATHETER
[2021-02-13 04:40] LABS: MUCOUS Present /lpf; PH 6 (5-8); SQUAMOUS EPITHELIAL 0-2 /hpf; URINE APPEARANCE Clear; URINE BACTERIA None Seen /hpf; URINE BILIRUBIN Negative (NEGATIVE); URINE BLOOD 2+ (NEGATIVE); URINE COLOR Yellow; URINE GLUCOSE Negative (NEGATIVE); URINE KETONE Negative (NEGATIVE); URINE LEUKOCYTE ESTERASE Negative (NEGATIVE); URINE NITRATE Negative (NEGATIVE); URINE PROTEIN(semi-quant) Negative (NEGATIVE); URINE UROBILINOGEN Negative (NEGATIVE)
[2021-02-13] MEDS ORDERED: LOTEMAX 5 ML 5 M5 ML OU (06:31)
[2021-02-13] MEDS ORDERED: SYSTANE BALANCE10 M1 OP (06:32)
[2021-02-13] MEDS ORDERED: REFRESH CELLUVI1 SOL OP (06:33)
[2021-02-13] MEDS ORDERED: SANCTURA20 MG PO (06:34)
[2021-02-13] MEDS ORDERED: ARICEPT10 MG PO (06:35)
[2021-02-13] MEDS ORDERED: SINEMET 25/101 UDTAB PO ×2 (06:36→13:24)
[2021-02-13] MEDS ORDERED: CRESTOR20 MG PO (06:37)
[2021-02-13] MEDS ORDERED: NEXIUM 40MG40 MG PO (06:40)
[2021-02-13] MEDS ORDERED: DULERA1 AR1 IH (06:42)
[2021-02-13] MEDS ORDERED: VITAMINC1000TA PO (06:43)
[2021-02-13] MEDS ORDERED: MASON NATURAL2000 IU PO (06:45)
[2021-02-13] MEDS ORDERED: NATURAL E400 IU PO (06:46)
[2021-02-13] MEDS ORDERED: TYLENOL 8 HR PO (06:48)
[2021-02-13] MEDS ORDERED: CRANBERRY FRUI425 MG PO (06:49)
[2021-02-13] MEDS ORDERED: NYSTATIN OR100 MU/ML PO (06:50)
[2021-02-13] MEDS ORDERED: MAGIC MOUTH PO (06:51)
[2021-02-13] MEDS ORDERED: NYSTATIN100000 U/1 TOP (06:51)
[2021-02-13] MEDS ORDERED: PREMARIN VAG42.5 GM VG (06:53)
--- NOTE | 2021-02-13 07:41 | NUR ---
Patient to room 316 from the ED. Nursing staffx2 transfered the patient to the bed. Patient is A&Ox3, drowsy and reporting that she is cold. Nurse gave the patient a warm blanket. Nurse oriented the patient to location, bed and call light. Assessment complete. IV CDI. Matute clear yellow urine, intact. Denies pain and discomfort. No further needs expressed from the patient. Call light within reach. Bed alarm on
[2021-02-13 11:43] VITALS: BP 138/53; PULSE 67; TEMP 97.9
[2021-02-13 12:34] LABS: CALCIUM 8.5 mg/dL (8.4-10.2); CREATININE, serum 1.44 (0.52-1.25); POTASSIUM 3.3 mmol/L (3.4-5.0)
--- NOTE | 2021-02-13 13:25 | NUR ---
Liv met with the pt (daughter present) who stated her preference to return home alone once medically stable. The pt next of kin is her daughter, Nona ). The pt states that she is independent on all ADLS but does use a cane, walker and CPAP machine. Her PCP is DR. Lion and gets her medications from [facility] She also sometimes uses [facility] pharmacy for insulin and has no trouble obtaining it. The pt informed Liv that she has a DPAO-HC and its her daughter. The pt informed Sw that she is interested in HH services, but would like look at the options and wait on PT/OT recommendations. Sw printed off list of HH services from Medicare.gov website for the pt and daughter to go over. Once PT/OT does recommendations, Liv will return to follow up. No other needs stated at this time. Sw to await further recommendations and follow up as needed. D/c: Home with HH ?
[2021-02-13 14:55] LABS: BASO % 0.1 % (0.0-2.0); EOS % 0.1 % (0-4.0); GRAN # 15.4 (1.4-6.5); GRAN % 89.3 % (42.2-75.2); HEMATOCRIT 37.8 % (37.0-47.0); HEMOGLOBIN 11.8 g/dl (12.5-16.0); LYMPH # 0.8 (1.2-3.4); LYMPH % 4.4 % (20.0-51.0); MEAN CELL VOLUME 91 fl (80.0-100.0); MEAN CORPUSCULAR HEMOGLOBIN 28 pg (27.0-31.0); MEAN CORPUSCULAR HGB CONC 31 g/dl (33.0-37.0); MEAN PLATELET VOLUME 11.9 fl (7.4-10.4); MONO % 5.6 % (1.7-9.3); PLATELET COUNT 182 K/mm3 (130-400); RED BLOOD COUNT 4.17 M/mm3 (4.10-5.30); REDCELL DISTRIBUTION WIDTH-CV 14.1 % (11.5-14.5)
[2021-02-13 15:54] VITALS: BP 114/43; PULSE 71; TEMP 97.5
--- NOTE | 2021-02-13 16:29 | NUR ---
First visit from the heel room supervisor. Furnace Door Tender prayed with patient and daughter. No other needs right now.
--- NOTE | 2021-02-13 17:23 | NUR ---
Patient was able to eat dinner and tolerated well, was hungry all shift. VSS, IV CDI, fluids infusing. Denies pain and discomfort, just reports being tired. Infinancialstronic rep came to turn off bladder stimulater. Matute clear yellow, intact. Call light within reach. Bed alarm on
[2021-02-13 19:22] VITALS: BP 130/50; PULSE 60; TEMP 98.5
--- NOTE | 2021-02-13 21:00 | NUR ---
Initial shift assessment done- has been resting beginning of shift- states really tired, feels overall weak, VSS, Matute with clear arslan urine. Has IV fluids of LR at 75cc/hr. Incision to right lower back-clean, dry, bruising noted, has a small pea sized open area to coccyx- mepliex applied. Denies pain. Taking pills without problems- on potassium protocol,,getting replacement for 3.3 potassium level
[2021-02-13 23:11] VITALS: BP 131/57; PULSE 74; TEMP 98.7
--- NOTE | 2021-02-14 01:32 | NUR ---
Patient called nurse saying she was short of breath- vitals were done- 129/56,58,18,97% on 1L/nc,, states has had productive cough of white/yellow sputum, also states feels chest pressure but not pain, Theresa NOYOLA called with all the above- she put in orders for trop/d-dimer,, EKG, Chest x ray,
--- NOTE | 2021-02-14 02:00 | NUR ---
EKG,CXR, LAB work completed-awaiting results, resp treatment was given to patient also,, pt states feels about the same-- o2 sat 99% on 1L/nc.
[2021-02-14 02:43] LABS: CALCIUM 8.1 mg/dL (8.4-10.2); CREATININE, serum 0.72 (0.52-1.25); POTASSIUM 3.8 mmol/L (3.4-5.0)
--- NOTE | 2021-02-14 03:00 | NUR ---
Theresa NOYOLA is following all results- troponin- d-dimer,waiting for creatinine to see if pt can have CT of the chest to r/o PE,, patient has been resting quietly- states still feels about the same
[2021-02-14 03:01] VITALS: BP 134/55; PULSE 63; TEMP 97.7
--- NOTE | 2021-02-14 04:00 | NUR ---
Did go down for CT of chest- Theresa is waiting for results
--- NOTE | 2021-02-14 05:00 | NUR ---
Patient is resting quietly-- CT was negative for PE,, will get another troponin drawn at 0500, VSS. Had 450cc emptied fro Matute at this time- o2 remains at 1L/nc with sats 96-97%,, Theresa NOYOLA did talk with clerical order filler and pt did get an ASA 325mg, no heparin drip at this time
[2021-02-14 07:21] LABS: BASO % 0.1 % (0.0-2.0); EOS # 0.3 (0.0-0.7); EOS % 2.5 % (0-4.0); GRAN % 79.4 % (42.2-75.2); HEMOGLOBIN 10.4 g/dl (12.5-16.0); LYMPH # 1.1 (1.2-3.4); LYMPH % 10.5 % (20.0-51.0); MEAN CELL VOLUME 90 fl (80.0-100.0); MEAN CORPUSCULAR HEMOGLOBIN 27 pg (27.0-31.0); MEAN CORPUSCULAR HGB CONC 31 g/dl (33.0-37.0); MONO # 0.7 (0.1-0.6); MONO % 7.1 % (1.7-9.3); PLATELET COUNT 146 K/mm3 (130-400)
[2021-02-14 07:22] LABS: HEMATOCRIT 34.1 % (37.0-47.0)
[2021-02-14 07:33] LABS: ALBUMIN 2.7 gm/dL (3.5-5.0); BILIRUBIN,TOTAL 0.3 mg/dL (0.0-1.0); CREATININE, serum 0.68 (0.52-1.25); POTASSIUM 3.6 mmol/L (3.4-5.0); TOTAL PROTEIN 5.4 gm/dL (6.4-8.2)
[2021-02-14 09:33] VITALS: BP 127/61; PULSE 67; TEMP 98.1
[2021-02-14 12:09] VITALS: BP 129/50; PULSE 65; TEMP 98
[2021-02-14 15:55] VITALS: BP 132/58; PULSE 72; TEMP 97.9
[2021-02-14 19:53] VITALS: BP 135/60; PULSE 65; TEMP 98.5
--- NOTE | 2021-02-14 20:00 | NUR ---
Initial shift assessment done- states overall feeling better than last night- VSS, o2 at 1L/nc, using I.S up to 1000, Matute with clear yellow ruine, denies pain at this time-- did get up to BSC with assist and had very small loose stool- no other requests at this time.
[2021-02-15 00:02] VITALS: BP 130/52; PULSE 60; TEMP 97.4
[2021-02-15 03:40] VITALS: BP 125/63; PULSE 65; TEMP 98
--- NOTE | 2021-02-15 06:00 | NUR ---
Quiet night- VSS, slept well, repositioned to left side- Matute with good amounts clear yellow urine
[2021-02-15 07:12] LABS: BASO % 0.4 % (0.0-2.0); EOS # 0.4 (0.0-0.7); EOS % 5.1 % (0-4.0); GRAN # 5.7 (1.4-6.5); LYMPH # 1.2 (1.2-3.4); LYMPH % 14.9 % (20.0-51.0); MEAN CELL VOLUME 92 fl (80.0-100.0); MEAN CORPUSCULAR HEMOGLOBIN 27 pg (27.0-31.0); MEAN CORPUSCULAR HGB CONC 30 g/dl (33.0-37.0); MEAN PLATELET VOLUME 11.5 fl (7.4-10.4); MONO # 0.6 (0.1-0.6); MONO % 7.3 % (1.7-9.3); PLATELET COUNT 149 K/mm3 (130-400); RED BLOOD COUNT 4.01 M/mm3 (4.10-5.30); REDCELL DISTRIBUTION WIDTH-CV 14.1 % (11.5-14.5)
[2021-02-15 07:13] LABS: HEMATOCRIT 36.7 % (37.0-47.0)
[2021-02-15 07:22] LABS: CALCIUM 8.6 mg/dL (8.4-10.2); CREATININE, serum 0.61 (0.52-1.25); POTASSIUM 4.2 mmol/L (3.4-5.0)
--- NOTE | 2021-02-15 07:22 | NUR ---
PT LAYING IN BED AWAKE THIS MORNING. DENIES ANY CURRENT PROBLEMS. NO FURTHER CONCERNS.
[2021-02-15 07:43] VITALS: BP 143/62; PULSE 65; TEMP 98.5
--- NOTE | 2021-02-15 07:45 | NUR ---
PT COMPLAINT OF BEING COLD, BUT SWEATY. CHECKED VITALS TEMP WNL AT 98.5. NO OTHER CONCERNS AT THIS TIME.
[2021-02-15 12:05] VITALS: BP 132/60; PULSE 66; TEMP 97.9
[2021-02-15 15:27] VITALS: BP 133/55; PULSE 61; TEMP 97.9
[2021-02-15 19:57] VITALS: BP 126/53; PULSE 68; TEMP 99.4
[2021-02-16] VITALS: BP 110/51; PULSE 67; TEMP 98
[2021-02-16 03:57] VITALS: BP 143/55; PULSE 59; TEMP 98.4
[2021-02-16 05:35] LABS: BASO % 0.4 % (0.0-2.0); EOS # 0.4 (0.0-0.7); EOS % 5.1 % (0-4.0); GRAN # 5.4 (1.4-6.5); GRAN % 67.9 % (42.2-75.2); HEMATOCRIT 38.4 % (37.0-47.0); HEMOGLOBIN 11.7 g/dl (12.5-16.0); LYMPH # 1.5 (1.2-3.4); LYMPH % 18.7 % (20.0-51.0); MEAN CELL VOLUME 91 fl (80.0-100.0); MEAN CORPUSCULAR HEMOGLOBIN 28 pg (27.0-31.0); MEAN CORPUSCULAR HGB CONC 31 g/dl (33.0-37.0); MEAN PLATELET VOLUME 10.7 fl (7.4-10.4); MONO # 0.6 (0.1-0.6); MONO % 7.6 % (1.7-9.3); PLATELET COUNT 169 K/mm3 (130-400); RED BLOOD COUNT 4.24 M/mm3 (4.10-5.30); REDCELL DISTRIBUTION WIDTH-CV 13.9 % (11.5-14.5)
[2021-02-16 05:46] LABS: CALCIUM 8.9 mg/dL (8.4-10.2); CREATININE, serum 0.61 (0.52-1.25); POTASSIUM 3.9 mmol/L (3.4-5.0)
--- NOTE | 2021-02-16 05:53 | NUR ---
PT HAD UNEVENTFUL NIGHT, PT DE LA ROSA PATENT AND FUNCTIONAL. I&O RECORDED AND UPDATED. PT DENIES PAIN,N,V,D,FEVERS AT THIS TIME. PT EXPRESSES NO ADDITIONAL NEEDS AT THIS TIME. CALL LIGHT WITHIN REACH.
--- NOTE | 2021-02-16 07:06 | NUR ---
PT IS LAYING IN BED, DE LA ROSA REMAINS IN PLACE. ECHO SCHEDULED FOR THIS MORNING. NO FURTHER CONCENRS.
[2021-02-16 08:35] VITALS: BP 153/56; PULSE 62; TEMP 97.6
[2021-02-16] MEDS ORDERED: ASPIRIN 81M81 MG/TA2 PO (10:25)
[2021-02-16 12:46] VITALS: BP 118/50; PULSE 66; TEMP 98.1
--- NOTE | 2021-02-16 16:03 | NUR ---
child welfare worker met with patient and called patient's daughter and provided education on home health and what it can do to benefit patient. Patient is agreeable to home health and will chose a desired agency. Worker provided another Medicare.gov share document and will await patient's choice.
--- NOTE | 2021-02-16 16:47 | NUR ---
fabric worker fitter met with patient and patient's daughter to discuss which home health service they would like to go with. Patient would like to go with [facility]. Referral and clinical documentaion faxed over.
[2021-02-16 16:57] VITALS: BP 135/53; PULSE 64; TEMP 98
== END 2021-02-16 18:00 | disposition home health service (06) | DRG 682 ==
LOC: COL.ER 02:02 → MEDICAL 05:00
PROVIDERS: Emergency Medicine; Physician Assistant; Student in an Organized Health Care Education/Training Program; ADMIT Internal Medicine
DX: N17.9 Acute kidney failure, unspecified (principal); I21.4 Non-ST elevation (NSTEMI) myocardial infarction; N39.0 Urinary tract infection, site not specified; R65.10 Systemic inflammatory response syndrome (SIRS) of non-infectious origin without acute organ dysfunction; J44.9 Chronic obstructive pulmonary disease, unspecified; G20 Parkinson's disease; F02.80 Dementia in other diseases classified elsewhere, unspecified severity, without behavioral disturbance, psychotic disturbance, mood disturbance, and anxiety; F41.9 Anxiety disorder, unspecified; E87.6 Hypokalemia; Z66 Do not resuscitate; K44.9 Diaphragmatic hernia without obstruction or gangrene; R33.9 Retention of urine, unspecified; R13.10 Dysphagia, unspecified; N32.81 Overactive bladder; K76.9 Liver disease, unspecified; K21.9 Gastro-esophageal reflux disease without esophagitis; M35.00 Sjogren syndrome, unspecified; M54.30 Sciatica, unspecified side; N13.30 Unspecified hydronephrosis; N32.89 Other specified disorders of bladder; I08.1 Rheumatic disorders of both mitral and tricuspid valves; I25.2 Old myocardial infarction; N39.498 Other specified urinary incontinence; F32.9 Major depressive disorder, single episode, unspecified; R00.1 Bradycardia, unspecified; R53.81 Other malaise; M19.90 Unspecified osteoarthritis, unspecified site; G47.33 Obstructive sleep apnea (adult) (pediatric); G31.84 Mild cognitive impairment of uncertain or unknown etiology; Z90.710 Acquired absence of both cervix and uterus; Z90.49 Acquired absence of other specified parts of digestive tract; Z86.711 Personal history of pulmonary embolism; Z88.8 Allergy status to other drugs, medicaments and biological substances; Z88.1 Allergy status to other antibiotic agents
CPT/HCPCS: 99222-AI; 99232-AI; 99239; A4314; A9284; J0696; J1650; J2270; J2405; J3480; J7030; J7120; Q9967

== ENCOUNTER 2021-06-03 09:45 | Outpatient (RCR) | payer MEDICARE, OTHER ==
[~2021-06-03 09:45] MED LIST changes: +ARICEPT10 MG PO; +ASPIRIN 81M81 MG/TA2 PO; +LOTEMAX 5 ML 5 M5 ML OU; +MAGIC MOUTH PO; +MASON NATURAL2000 IU PO; +NEXIUM 40MG40 MG PO; +NYSTATIN100000 U/1 TOP; +REFRESH CELLUVI1 SOL OP; +SANCTURA20 MG PO; +SINEMET 25/101 UDTAB PO; +SYSTANE BALANCE10 M1 OP; +TYLENOL 8 HR PO; +VITAMINC1000TA PO
== END 2021-06-26 | disposition home or self-care (01) ==
LOC: WSST
DX: R41.841 Cognitive communication deficit (principal); G20 Parkinson's disease

== ENCOUNTER 2021-06-03 17:38 | Emergency (ER) | payer MEDICARE, OTHER ==
[~2021-06-03] VITALS: Ht 154.9 cm; Wt 48.2 kg
[2021-06-03 17:51] VITALS: TEMP 99.2
[2021-06-03 20:15] VITALS: BP 129/55; PULSE 74
[2021-06-03 20:50] LABS: PROTHROMBIN TIME 11.2 SECONDS (9.7-12.8)
== END 2021-06-03 20:15 | disposition home or self-care (01) ==
LOC: COL.ER 17:38
PROVIDERS: Physician Assistant
DX: S82.845A Nondisplaced bimalleolar fracture of left lower leg, initial encounter for closed fracture (principal); J44.9 Chronic obstructive pulmonary disease, unspecified; G20 Parkinson's disease; F02.80 Dementia in other diseases classified elsewhere, unspecified severity, without behavioral disturbance, psychotic disturbance, mood disturbance, and anxiety; K21.9 Gastro-esophageal reflux disease without esophagitis; Z79.899 Other long term (current) drug therapy; W01.0XXA Fall on same level from slipping, tripping and stumbling without subsequent striking against object, initial encounter; X50.1XXA Overexertion from prolonged static or awkward postures, initial encounter; Y93.01 Activity, walking, marching and hiking; Y92.009 Unspecified place in unspecified non-institutional (private) residence as the place of occurrence of the external cause

== ENCOUNTER → 2021-06-17 | Outpatient (CLI) | payer MEDICARE, OTHER | LOC: COL.RAD 15:14 | DX: M85.80 Other specified disorders of bone density and structure, unspecified site (principal) ==

== ENCOUNTER 2021-07-03 13:36 | Outpatient (CLI) | payer MEDICARE, OTHER ==
[2021-07-03 13:30] VITALS: BP 126/63; PULSE 72; TEMP 98.4
[2021-07-03 13:45] VITALS: BP 128/58; PULSE 18; TEMP 98.4
[2021-07-03 14:00] VITALS: BP 130/58; PULSE 72; TEMP 98.4
[2021-07-03 14:15] VITALS: BP 121/60; PULSE 72; TEMP 98.4
[2021-07-03 14:30] VITALS: BP 124/62; PULSE 71; TEMP 98.4
[2021-07-03 14:40] VITALS: BP 130/61; PULSE 71; TEMP 98.4
== END 2021-07-03 15:00 | disposition home or self-care (01) ==
LOC: EUO 13:36
DX: U07.1 COVID-19 (principal)
CPT/HCPCS: M0247; Q0247

== ENCOUNTER → 2021-07-03 | Outpatient (CLI) | payer MEDICARE, OTHER ==
[2021-07-06 07:37] LABS: KAPPA FREE LIGHT CHAIN-SERUM 21.47 mg/L (()); KAPPA LAMBDA RATIO 1.22 ratio (()); LAMDA FREE LIGHT CHAIN SERUM 17.66 mg/L (())
== END ==
LOC: ZLAB.STJ 11:59
PROVIDERS: Psychiatry & Neurology Neurology
DX: E85.81 Light chain (AL) amyloidosis (principal); R26.9 Unspecified abnormalities of gait and mobility; G31.84 Mild cognitive impairment of uncertain or unknown etiology; G20 Parkinson's disease; G80.9 Cerebral palsy, unspecified; R26.89 Other abnormalities of gait and mobility

== ENCOUNTER → 2021-07-07 | Outpatient (CLI) | payer MEDICARE, OTHER | LOC: ZLAB.STJ 15:47 | DX: E53.1 Pyridoxine deficiency (principal) ==

== ENCOUNTER → 2022-11-24 | Outpatient (RCR) | payer MEDICARE, OTHER | LOC: MKS.ESL.PT | DX: G20 Parkinson's disease (principal) ==

== ENCOUNTER 2023-02-23 09:45 | Outpatient (RCR) | payer MEDICARE, OTHER | END 2023-02-24 | disposition home or self-care (01) | LOC: MKS.ESL.PT | DX: G20 Parkinson's disease (principal); R26.89 Other abnormalities of gait and mobility ==

== ENCOUNTER 2023-03-16 11:15 | Outpatient (RCR) | payer MEDICARE, OTHER ==
[2023-03-22] MEDS ORDERED: PROTONIX 40MG T40 MG PO (08:47)
[2023-03-22] MEDS ORDERED: FLORAJEN A20 Billion (08:48)
[2023-03-22] MEDS ORDERED: FARXIGA10 PO (08:51)
[2023-03-22] MEDS ORDERED: ONE-A-DAY ESSE1 EACH PO (08:51)
[2023-03-22] MEDS ORDERED: TYLENOL 8 HR PO (08:57)
== END 2023-03-26 | disposition home or self-care (01) ==
LOC: MKS.ESL.PT
DX: G20 Parkinson's disease (principal); R49.0 Dysphonia; R26.81 Unsteadiness on feet

== ENCOUNTER → 2023-06-30 | Outpatient (CLI) | payer MEDICARE, OTHER ==
[~2023-06-30] MED LIST changes: +FARXIGA10 PO; +FLORAJEN A20 Billion; +ONE-A-DAY ESSE1 EACH PO; +PROTONIX 40MG T40 MG PO
== END ==
LOC: MC.RAD 16:51
DX: Z12.31 Encounter for screening mammogram for malignant neoplasm of breast (principal)

== ENCOUNTER → 2023-10-07 | Outpatient (CLI) | payer MEDICARE, OTHER ==
[~2023-10-07] MED LIST changes: +CRANBERRY250 MG PO; +GEMTESA75 MG PO; +LIDODERM 5% PATC1 EA TP; +LOMOTIL 0.025 M1 TAB PO; +MOTRIN 400400 MG/TAB PO; +TYLENOL 500MG500 MG PO; +ULTRAM 50MG TAB50 MG PO; +VITAMIN D31000 IU PO
[2023-10-08 00:16] LABS: COLLECTION METHOD CLEAN CATCH
[2023-10-08 00:49] LABS: URINE APPEARANCE CLOUDY (CLEAR/HAZY); URINE BLOOD NEGATIVE (NEGATIVE); URINE COLOR Dark Yellow (YELLOW); URINE GLUCOSE NEGATIVE (NEGATIVE); URINE KETONE TRACE (NEGATIVE); URINE NITRATE NEGATIVE (NEGATIVE); URINE PROTEIN(semi-quant) TRACE (NEGATIVE)
[2023-10-08 01:04] LABS: MUCOUS PRESENT (NOT PRESENT); URINE BACTERIA RARE /hpf (NONE SEEN); URINE RBC NONE SEEN /hpf (0-2)
== END ==
LOC: ZCOL.LAB 23:21
PROVIDERS: Internal Medicine
DX: N39.0 Urinary tract infection, site not specified (principal)